=== PATIENT | male | born 1950 | race Caucasian/White ===

== ENCOUNTER 2020-01-05 09:26 | Outpatient (CLI) | payer MEDICARE, SELFPAY ==
--- NOTE | 2020-01-05 11:00 | NEURO_ITS ---
Patient Number: [id number] Impression: # Complains of pain in right lower extremity. # Normal nerve conduction study. # Normal needle/EMG exam. # Clinical correlation recommended. Nerve Conduction Studies Anti Sensory Summary Table Stim Site NR Peak (ms) P-T Amp (?V) Site1 Site2 Delta-P (ms) Dist (cm) Osito (m/s) Right Sup Fibular Anti Sensory (Ant Lat Mall) 14 cm 3.6 15.2 14 cm Ant Lat Mall 3.6 16.0 44 Right Sural Anti Sensory (Lat Mall) Calf 3.3 7.4 Calf Lat Mall 3.3 16.0 48 Motor Summary Table Stim Site NR Onset (ms) O-P Amp (mV) Site1 Site2 Delta-0 (ms) Dist (cm) Osito (m/s) Right Peroneal Motor (Vastus Med) Ankle 4.2 2.7 Popit Ankle 8.3 40.0 48 Popit 12.5 2.3 Right Tibial Motor (Abd Tucker Brev) Ankle 4.9 5.9 Knee Ankle 9.7 43.0 44 Knee 14.6 6.0 F Wave Studies NR F-Lat (ms) L-R F-Lat (ms) Right Peroneal (Mrkrs) (EDB) 54.45 Right Tibial (Mrkrs) (Abd Hallucis) 54.84 EMG Side Muscle Nerve Root Ins Act Fibs Amp Dur Recrt Comment Right AntTibialis Dp Br Fibular L4-5 Nml Nml Nml Nml Nml Right Gastroc Tibial S1-2 Nml Nml Nml Nml Nml Right Fibularis Long Sup Br Fibular L5-S1 Nml Nml Nml Nml Nml Right Flex Dig Long Tibial L5-S2 Nml Nml Nml Nml Nml Right Ext Dig Brev Dp Br Fibular L5, S1 Nml Nml Nml Nml Nml Right AbdHallucis MedPlantar S1-2 Nml Nml Nml Nml Nml Right QuadratusFem QuadFemoris L4-5, S1 Nml Nml Nml Nml Nml MTDD
== END 2020-01-05 09:27 | disposition home or self-care (01) ==
LOC: ANHNEURO 09:33
PROVIDERS: PCP Family Medicine; Visit Provider Family Medicine
DX: M25.561 Pain in right knee (principal); M79.604 Pain in right leg
CPT/HCPCS: 95886; 95908